=== PATIENT | female | born 1955 | race Hispanic/Latino ===

== ENCOUNTER 2024-09-07 19:54 | Emergency (ER) | payer MEDICARE, OTHER ==
[~2024-09-07] VITALS: Ht 162.6 cm; Wt 77.6 kg
[2024-09-07] MEDS: ONDANSETRON HCL INJ 2MG/ML 2ML 2 MG/ML VIAL IV STA ×2 (20:25→22:12)
[2024-09-07 20:26] LABS: BASOPHILS % 0.1 % (0.0-1.0); EOSINOPHILS % 0.4 % (0.0-6.0); HEMATOCRIT 43.3 % (34.2-44.1); HEMOGLOBIN 13.8 g/dL (12.0-16.0); LYMPHOCYTES # (AUTO) 0.8 (1.0-3.2); LYMPHOCYTES % 11.6 % (18.0-39.1); MEAN CORPUSCULAR HEMOGLOBIN 32.2 pg (28-32); MEAN CORPUSCULAR HGB CONC 31.9 g/dL (31-35); MEAN CORPUSCULAR VOLUME 101.2 fL (81-99); MONOCYTES # (AUTO) 0.5 (0.2-0.8); MONOCYTES % 7.1 % (4.4-11.3); NEUTROPHILS # (AUTO) 5.7 (2.1-6.9); NEUTROPHILS % 80.5 % (38.7-80.0); PLATELET COUNT 169 x10e3/uL (140-360); RED BLOOD COUNT 4.28 x10e6/uL (3.6-5.1); RED CELL DISTRIBUTION WIDTH 13.1 % (11.7-14.4); WHITE BLOOD COUNT 7.14 x10e3/uL (4.8-10.8)
[2024-09-07] MEDS: Morphine 4mg INJECTION 4 MG/ML INJ IV ONE (20:26)
[2024-09-07] MEDS: SODIUM CHLORIDE 0.9% 1000ML 1,000 ML IV ONE (20:26)
[2024-09-07 20:45] LABS: ALBUMIN 4.1 g/dL (3.5-5.0); ALBUMIN/GLOBULIN RATIO 1.3 (0.8-2.0); BILIRUBIN,TOTAL 0.9 mg/dL (0.2-1.2); CALCIUM 9.2 mg/dL (8.4-10.2); CREATININE, SERUM 0.83 mg/dL (0.57-1.11); TOTAL PROTEIN 7.2 g/dL (6.5-8.1)
[2024-09-07] MEDS ORDERED: IOPAMIDOL 370 MG/ML 100 ML INFUS..BTL INJ ONE (20:47)
[2024-09-07 21:04] LABS: TROPONIN I 0.001 ng/mL (0-0.300)
[2024-09-07 21:42] VITALS: PULSE 100; RESP 19; TEMP 99.6
[2024-09-07] MEDS ORDERED: ONDANSETRON ODT4 MG SL (21:53)
[2024-09-07] MEDS ORDERED: PANTOPRAZOLE SO40 MG PO (21:53)
[2024-09-07 22:17] VITALS: BP 167/82; PULSE 98; RESP 17; TEMP 99.6; O2SAT 100
== END 2024-09-07 22:19 | disposition home or self-care (01) ==
LOC: ER 20:03
DX: R10.13 Epigastric pain (principal); R11.2 Nausea with vomiting, unspecified; R19.7 Diarrhea, unspecified; E11.65 Type 2 diabetes mellitus with hyperglycemia; R94.31 Abnormal electrocardiogram [ECG] [EKG]; Z85.3 Personal history of malignant neoplasm of breast
CPT/HCPCS: 36415; 74177; 80053; 83690; 84484; 85025; 93005; 99284; J2405; J2470; J7030; Q9967; J2270